=== PATIENT | male | born 1960 | race Caucasian/White ===

== ENCOUNTER 2025-11-16 14:16 | Outpatient (CLI) | payer OTHER ==
[2025-11-16 17:02] LABS: Estimated GFR - POC 95.0
== END 2025-11-16 14:17 | disposition home or self-care (01) ==
LOC: CSHCT 14:16
PROVIDERS: ATTEND Internal Medicine
DX: R10.9 Unspecified abdominal pain (principal); Z72.0 Tobacco use; R91.1 Solitary pulmonary nodule; R59.0 Localized enlarged lymph nodes; R91.8 Other nonspecific abnormal finding of lung field; K76.9 Liver disease, unspecified; R16.1 Splenomegaly, not elsewhere classified; I72.3 Aneurysm of iliac artery
CPT/HCPCS: 74178; 82565